=== PATIENT | female | born 1995 | race Caucasian/White ===

== ENCOUNTER 2025-05-01 18:36 | Emergency (ER) | payer MEDICAID, SELFPAY ==
[2025-05-01] VITALS (35 sets, daily range): BP systolic 76–125; BP diastolic 33–91; PULSE 69–109; RESP 11–26; TEMP 36.9; O2SAT 91–99
[2025-05-01] MEDS: LORazepam 20 MG/10 ML VIAL IVP ×2 (19:14→21:31)
[2025-05-01 19:16] LABS: Abs Immature Grans 0.03 10^3/uL (0.0-0.06); Absolute Basophil Count 0.04 10^3/uL (0.0-0.2); Absolute Eosinophil Count 0.03 10^3/uL (0.0-0.7); Absolute Lymphocyte Count 2.18 10^3/uL (1.2-3.4); Absolute Monocyte Count 0.58 10^3/uL (0.1-0.8); Absolute Neutrophil Count 6.21 10^3/uL (1.2-6.7); Basophils % 0.4 %; Eosinophils % 0.3 %; HCT 38.9 % (36.0-46.0); HGB 13.2 g/dL (11.2-15.7); Immature Grans % 0.3 %; MCH 30.1 pg (27.0-33.0); MCHC 33.9 % (32.0-36.0); MCV 89 fL (80-95); MPV 9.6 fL (8.0-11.0); Monocytes % 6.4 %; Neutrophils % 68.6 %; Platelet Count 431 10^3/uL (130-400); RBC 4.38 10^6/uL (3.93-5.22); RDW 12.6 % (11.7-14.6); RDW-SD 41.3 fL; WBC 9.07 10^3/uL (4.4-10.8)
[2025-05-01 19:31] LABS: ALT 38 U/L (14-59); AST 29 U/L (15-37); Albumin 4.1 g/dL (3.4-5.0); Alkaline Phosphatase 101 U/L (46-116); Anion Gap 12.2 mmol/L (3-11); BUN 7 mg/dL (7-18); Bilirubin, Total 0.5 mg/dL (0.2-1.0); CO2 28.8 mmol/L (21.0-32.0); CREATININE 0.8 mg/dL (0.55-1.02); Calcium 9.2 mg/dL (8.5-10.1); Chloride 99 mmol/L (98-107); Estimated GFR 100.96 (mL/min/1.73m2); Glucose 109 mg/dL (74-106); Lipase 20 U/L (<78); Magnesium 1.9 mg/dL (1.8-2.4); Potassium 3.3 mmol/L (3.5-5.1); Sodium 140 mmol/L (136-145); Total Protein 8.3 g/dL (6.4-8.2)
[2025-05-01] MEDS: MAGNESIUM SULFATE 8.12 MEQ, MULTIVITAMIN 10 ML, THIAMINE 100 MG, FOLIC ACID 1 MG in Nor... 168.867 MG IV (19:36)
[2025-05-01 19:43] LABS: ETHANOL BLOOD < 3.0 mg/dL (<10)
[2025-05-01 19:53] LABS: Acetaminophen < 2 ug/mL (10-30); Salicylate 3.5 mg/dL (<2.8)
--- NOTE | 2025-05-01 20:45 | W.ED.GENAD ---
Discharge Plan Disposition Patient Disposition: Home Condition: Stable Discharge Details Clinical Impression: Alcohol withdrawal Primary Care Provider: None,None ED Provider: Vrenon Gomez Home Meds and New Rx's Prescriptions: New chlordiazepoxide HCl 25 mg capsule See Rx Instructions .ROUTE .COMPLEX PRNQty: 15 0RF Rx Instructions: Take 50mg Q6hr day 1; Take 25mg Q6hr day 2; Take 25mg Q12hr day 3; Take 25mg PO qHS day 4 Continued venlafaxine 225 mg tablet extended release 24hr 225 mg PO DAILY buprenorphine-naloxone [Suboxone] 2-0.5 mg film 1 film sublingual DAILY Patient Comments: Per pt - pt goes to [facility] - last dose 05/01/25 Discharge Instructions Instructions: Alcohol withdrawal, Chlordiazepoxide, Alcohol Use Disorder ED Additional Instructions: You were seen in the emergency department for your mild alcohol withdrawal. Your labs are reassuring, you need to take a potassium supplement [id number] or eat a high potassium diet as you have mildly low potassium. I have sent a prescription for a medicine that we will help you through the symptoms of alcohol withdrawal to [facility] in [facility], please take this as directed start tomorrow. Please return to the emergency department for any significant seizure activity or other emergent concerns. Discharge Data Discharge Date/Time-TO BE ENTERED AT DEPARTURE: 05/01/25 22:15 HPI General Date/Time Provider Initiated Documentation: 05/01/25 18:54. HPI Narrative: 29 year-old female presents to ED today by POV/ambulating with a chief complaint of alcohol withdrawal with onset of last drink last night. Quality described as nausea and vomiting, some red tinge to it prior to arrival, goes to [facility] for Suboxone and got her dose this a.m. patient admits to using meth last used on Sunday nights and states it was laced with fentanyl, no radiation to history of seizures, active vomiting, chest pain, fever, cough, dysuria, constipation, liquid diarrhea. Severity is described as severe. Palliating factors include nothing specific attempted. Provoking factors include nothing specific. Patient not anticoagulated. Related Data Home Medications ?Medication ?Instructions ?Recorded ?Confirmed buprenorphine 2 mg-naloxone 0.5 mg 1 film sublingual DAILY 05/01/25 05/01/25 sublingual film (Suboxone) chlordiazepoxide HCl 25 mg capsule See Rx Instructions .Route 05/01/25 .COMPLEX PRN #15 caps venlafaxine 225 mg tablet,extended 225 mg PO DAILY 05/01/25 05/01/25 release 24 hr Previous Rx's ?Medication ?Instructions ?Recorded chlordiazepoxide HCl 25 mg capsule See Rx Instructions .Route 05/01/25 .COMPLEX PRN #15 caps Allergies Allergy/AdvReac Type Severity Reaction Status Date / Time No Known Allergies Allergy Verified 05/01/25 18:41 General Stated Complaint: ETOHWithdr ALEXANDER: 2 Review of Systems All systems reviewed & are unremarkable except as noted in HPI and below Exam Narrative Exam Narrative: GENERAL APPEARANCE: Well-nourished, non-toxic, awake and alert, atraumatic, no acute distress. SKIN: Warm, pink, dry, intact, without rashes/lesions/ulcerations. HEAD: Normocephalic, atraumatic, normal hair distribution for gender/age. EYES: Normal conjunctiva, no exudates on lids/lashes. ENT: Nares patent, no circumoral cyanosis, no facial swelling NECK: Supple, trachea midline, painless cervical ROM. LUNGS/CHEST: Lungs CTA bilaterally -no rhonchi/rales/wheezes, non-labored respirations, normal A/P diameter, symmetrical expansion, no chest wall deformity HEART (CV/PV): Regular rate and rhythm without murmur, no peripheral edema, no JVD. ABDOMEN: Soft, non-distended, no guarding, no tenderness. MSK: Normal ROM, no swelling/deformity to bilateral UEs or LEs, moving all extremities without weakness, no cyanosis, spine midline without tenderness, normal curvature. NEURO: Mental Status AAOx4 - alert to person, place, time, events No facial droop, no forehead involvement. Motor: No focal weakness - strength 5/5 in bilateral UEs and LEs, proximal and distal, symmetric. Sensory: sensation intact to light touch globally. Gait normal: patient ambulated without ataxia into ED room. PSYCH: dysthymic, cooperative, pleasant, appropriate speech Course Vital Signs Vital signs: Vital Signs Temperature 36.9 C 05/01/25 18:37 Pulse 109 H 05/01/25 18:37 Respiratory Rate 22 05/01/25 18:37 Blood Pressure 123/91 H 05/01/25 18:37 Pulse Oximetry 99 05/01/25 18:37 Temperature 36.9 C 05/01/25 18:37 Temperature Source Oral 05/01/25 18:37 Pulse 102 H 05/01/25 19:31 Pulse 93 H 05/01/25 19:31 Respiratory Rate 23 05/01/25 19:31 Respiratory Pattern Normal 05/01/25 19:17 Blood Pressure 102/88 05/01/25 19:31 Blood Pressure Mean 92 05/01/25 19:31 Blood Pressure Position Sitting 05/01/25 18:37 Pulse Oximetry 96 05/01/25 19:20 Oxygen Delivery Method Room Air 05/01/25 18:37 Oxygen Flow Rate 0 05/01/25 18:37 Pain Level 0 05/01/25 18:37 Lab/Test Results Lab/Test Results: Laboratory Tests Range/Units 05/01/25 14:05 WBC (4.4-10.8) 10^3/uL 9.07 RBC (3.93-5.22) 10^6/uL 4.38 Hgb (11.2-15.7) g/dL 13.2 Hct (36.0-46.0) % 38.9 MCV (80-95) fL 89 MCH (27.0-33.0) pg 30.1 MCHC (32.0-36.0) % 33.9 RDW (11.7-14.6) % 12.6 Plt Count (130-400) 10^3/uL 431 H MPV (8.0-11.0) fL 9.6 Immature Gran % % 0.3 Neutrophils % % 68.6 Lymphocytes % % 24.0 Monocytes % % 6.4 Eosinophils % % 0.3 Basophils % % 0.4 Nucleated RBC % (0.0-0.3) % 0.0 Absolute Neutrophils (1.2-6.7) 10^3/uL 6.21 Absolute Lymphocytes (1.2-3.4) 10^3/uL 2.18 Absolute Monocytes (0.1-0.8) 10^3/uL 0.58 Absolute Eosinophils (0.0-0.7) 10^3/uL 0.03 Absolute Basophils (0.0-0.2) 10^3/uL 0.04 Sodium (136-145) mmol/L 140 Potassium (3.5-5.1) mmol/L 3.3 L Chloride (98-107) mmol/L 99 Carbon Dioxide (21.0-32.0) mmol/L 28.8 Anion Gap (3-11) mmol/L 12.2 H BUN (7-18) mg/dL 7 Creatinine (0.55-1.02) mg/dL 0.8 Est GFR (CKD-EPI 2020) (mL/min/1.73m2) 100.96 Glucose (74-106) mg/dL 109 H Calcium (8.5-10.1) mg/dL 9.2 Magnesium (1.8-2.4) mg/dL 1.9 Total Bilirubin (0.2-1.0) mg/dL 0.5 AST (15-37) U/L 29 ALT (14-59) U/L 38 Alkaline Phosphatase (46-116) U/L 101 Total Protein (6.4-8.2) g/dL 8.3 H Albumin (3.4-5.0) g/dL 4.1 Lipase (<78) U/L 20 Salicylates (<2.8) mg/dL 3.5 Acetaminophen (10-30) ug/mL < 2 Ethyl Alcohol (<10) mg/dL < 3.0 Medical Decision Making This dictation utilizes [id number] dictation software and may contain unedited grammatical errors. 29 year-old female presents to ED today by POV/ambulating with a chief complaint of alcohol withdrawal with onset of last drink last night-12 beers per day minimum after loss of family member last year. Quality described as nausea and vomiting, some red tinge to it prior to arrival, goes to [facility] for Suboxone and got her dose this a.m. patient admits to using meth last used on Sunday nights and states it was laced with fentanyl, no radiation to history of seizures, active vomiting, chest pain, fever, cough, dysuria, constipation, liquid diarrhea. Severity is described as severe. Palliating factors include nothing specific attempted. Provoking factors include nothing specific. Patients' medical history: Alcohol withdrawal, polysubstance abuse. Family and social history: Noncontributory. Patient started to shake controllably in interview- was able to look around and follow commands and answer questions throughout, this was not observed from outside the room prior to entering Pertinent exam findings / vital signs include benign cardiopulmonary exam, no active vomiting, voluntary convulsive activity when observed, resolves when not in room, following commands, comfortably resting after medication. Differential / pathologies of concern include alcohol withdrawal, polysubstance abuse, intoxication, pseudoseizure, DTs. Diagnostic studies of: - CBC, CMP, magnesium, lipase, salicylate, acetaminophen level, alcohol level, UA, UDS*patient did not provide urine. - CBC shows no leukocytosis, no anemia - CMP shows mildly low potassium, counseled on high potassium diet - Magnesium within normal limits - Lipase negative - Salicylates mildly elevated - Acetaminophen level negative - Ethanol: Negative Interventions of: - 1 L banana bag IVF, 1 mg Ativan. -Rx for Librium ED Course/Assessment/Plan: 29-year-old female patient seen for polysubstance abuse/alcohol withdrawal last drink last night drinks about 12 beers every day she has some convulsive activity is unclear whether this is voluntary or not as it seems to be able to go into remission when provider leaves the room, 1 dose of Ativan patient slept for hours, had no complications, mildly low potassium, asking to be discharged, I did provide a Librium taper and recommend she follow-up with recovery manager and continue [facility] and avoid using substances as she admits to using meth this week. Strict return criteria for any emergent concerns or seizure-like activity. Findings not consistent with seizure activity, patient rested throughout entirety of visit once medicated with 1mg Ativan. Disposition of Alcohol Withdrawal. Patient verbalized understanding of the plan and return to ED criteria and engaged in shared decision making. Medical Records Medical records reviewed: Yes I reviewed the patient's medical records. Lab Data Lab results reviewed: Yes I reviewed the patient's lab results. Labs: Laboratory Tests Range/Units 05/01/25 14:05 WBC (4.4-10.8) 10^3/uL 9.07 RBC (3.93-5.22) 10^6/uL 4.38 Hgb (11.2-15.7) g/dL 13.2 Hct (36.0-46.0) % 38.9 MCV (80-95) fL 89 MCH (27.0-33.0) pg 30.1 MCHC (32.0-36.0) % 33.9 RDW (11.7-14.6) % 12.6 Plt Count (130-400) 10^3/uL 431 H MPV (8.0-11.0) fL 9.6 Immature Gran % % 0.3 Neutrophils % % 68.6 Lymphocytes % % 24.0 Monocytes % % 6.4 Eosinophils % % 0.3 Basophils % % 0.4 Nucleated RBC % (0.0-0.3) % 0.0 Absolute Neutrophils (1.2-6.7) 10^3/uL 6.21 Absolute Lymphocytes (1.2-3.4) 10^3/uL 2.18 Absolute Monocytes (0.1-0.8) 10^3/uL 0.58 Absolute Eosinophils (0.0-0.7) 10^3/uL 0.03 Absolute Basophils (0.0-0.2) 10^3/uL 0.04 Sodium (136-145) mmol/L 140 Potassium (3.5-5.1) mmol/L 3.3 L Chloride (98-107) mmol/L 99 Carbon Dioxide (21.0-32.0) mmol/L 28.8 Anion Gap (3-11) mmol/L 12.2 H BUN (7-18) mg/dL 7 Creatinine (0.55-1.02) mg/dL 0.8 Est GFR (CKD-EPI 2020) (mL/min/1.73m2) 100.96 Glucose (74-106) mg/dL 109 H Calcium (8.5-10.1) mg/dL 9.2 Magnesium (1.8-2.4) mg/dL 1.9 Total Bilirubin (0.2-1.0) mg/dL 0.5 AST (15-37) U/L 29 ALT (14-59) U/L 38 Alkaline Phosphatase (46-116) U/L 101 Total Protein (6.4-8.2) g/dL 8.3 H Albumin (3.4-5.0) g/dL 4.1 Lipase (<78) U/L 20 Salicylates (<2.8) mg/dL 3.5 Acetaminophen (10-30) ug/mL < 2 Ethyl Alcohol (<10) mg/dL < 3.0 PFSH All Active Problems (Updated 05/01/25 @ 21:57 by JOHNSON Villalobos) Alcohol withdrawal (Acute) Social History Smoking risk assessment performed?: No Alcohol Intake: current Alcohol Intake frequency: 3 or more drinks per day Alcohol type: beer and other Drug use: Daily Substance use type: marijuana, opiates and methamphetamine PAWSS Have you Been Recently Intoxicated or Drunk Within the Last 30 days?: Yes Have you Ever Experienced Previous Episodes of Alcohol Withdrawal?: No Have you ever Experienced Withdrawal Seizures?: No Have you ever Experienced Delirium Tremens(DT)s?: No Have you ever undergone Alcohol Rehabilitation Treatment (i.e, inpt ot outpatient treatment programs)?: No Have you ever Experienced Blackouts?: Yes Have you ever Combined Alcohol with other Downers within the last 90 days?: Yes Have you ever Combined Alcohol with any other Substance of Abuse during the last 90 days?: Yes Positive Blood Alcohol level on Presentation? [PCS.BAL]: Unable to Obtain Evidence of Increased Autonomic Activity (i.e. HR>120, tremor, sweating, agitation, nausea)?: Yes Result: 5
[2025-05-01] MEDS: Potassium Chloride 20 MEQ TABCR 40 MEQ PO (21:20)
== END 2025-05-01 22:15 | disposition home or self-care (01) ==
PROVIDERS: Emergency Provider Physician Assistant
DX: F10.130 Alcohol abuse with withdrawal, uncomplicated (principal); F19.10 Other psychoactive substance abuse, uncomplicated
CPT/HCPCS: 80053; 83690; 96374; 96375; 96376; 99284; 80320; 80329; 83735; 85025; J2060; J3411; J3475